=== PATIENT | male | born 1990 | race Caucasian/White ===

== ENCOUNTER → 2022-10-18 13:58 | Outpatient (BNVA) | payer SELFPAY | PROVIDERS: PCP Family Medicine Adult Medicine; Visit Provider Family Medicine Adult Medicine | DX: R53.83 Other fatigue (principal); G47.419 Narcolepsy without cataplexy; F32.A Depression, unspecified; F41.9 Anxiety disorder, unspecified; Z78.9 Other specified health status | CPT/HCPCS: 80053; 82542; 83036; 84443; 85025 ==

== ENCOUNTER 2022-12-14 19:10 | Emergency (ER) | payer OTHER, SELFPAY ==
[2022-12-14 19:21] VITALS: BP 109/78; PULSE 73; RESP 16; TEMP 36.3; O2SAT 100
[2022-12-14] MEDS: meclizine 25 mg tablet 50 MG PO (19:42)
[2022-12-14] MEDS: ondansetron 2 mg/ML SDV 2 mL 4 MG IVP (19:43)
[2022-12-14] MEDS: sodium chloride 0.9% 1,000 ML 999 ML IV (19:45)
[2022-12-14 19:46] LABS: Basophils % 0.2 %; Eosinophils % 0.7 %; Hemoglobin 14.8 g/dL (11.7-16.6); Lymphocytes # 0.9 10^3/uL (0.8-4.8); Lymphocytes % 20.7 %; Mean Corpuscular HGB Conc 32.9 g/dL (30.0-36.0); Mean Corpuscular Hemoglobin 28.4 pg (28.0-34.0); Mean Corpuscular Volume 86.4 fl (80-94); Mean Platelet Volume 8.8 fL (7.4-10.4); Monocytes # 0.3 10^3/uL (0.2-0.9); Monocytes % 6.2 %; Neutrophils # 3.26 10^3/uL (1.8-7.7); Neutrophils % 71.8 %; Nucleated Red Blood Cells % 0 %; Platelet Count 295 10^3/cmm (130-400); Red Blood Count 5.21 10^6/uL (4.1-5.3); Red Cell Distribution Width 13.2 % (12.1-15.1); White Blood Count 4.5 10^3/uL (4.0-10.0)
--- NOTE | 2022-12-14 19:55 | W.ED.GENADLT ---
HPI - General Adult General: Chief complaint: General Medical Stated complaint: lethargic, n/v Time Seen by Provider: 12/14/22 19:25 Source: patient Mode of arrival: ambulatory Limitations: no limitations History of Present Illness: 32-year-old male states that over the last couple days he has had some vertigo he states it is much worse today has had nausea and vomiting states it is much worse with sudden movements states better when he is laying still he states that once he starts walking is able to walk without any difficulty he denies any fever denies any headache. Associated symptoms: Reports nausea and vomiting; Deny chest pain, dyspnea, headache(s) or rash Review of Systems Const: Denies: fever(s), chills, body aches or change in appetite Eyes: Denies: blurry vision or eye discomfort Card: Denies: chest pain Resp: Denies: dyspnea GI: Reports: nausea and vomiting; Denies: abdominal pain or diarrhea : Denies: dysuria Musc: Denies: neck pain or back pain Skin/Breast: Denies: rash Neuro: Reports: vertigo; Denies: headache(s) PFSH ED PFSH: Medical History Adjustment disorder with mixed anxiety and depressed mood Anxiety and depression Fatigue Insomnia Smoker unmotivated to quit Social History Quit status (tobacco): has tried quititng Number of times tried to quit tobacco: 1 Second hand smoke exposure: Yes Alcohol intake: never Substance/Drug Use: never Current occupational status: previously employed Physical Exam Const: COMMON NORMALS: no acute distress, patient oriented x3 and healthy appearing HENMT: COMMON NORMALS: normocephalic and atraumatic HEAD & SCALP: normocephalic and atraumatic Eye: COMMON NORMALS: Equal, round and reactive pupils present and EOMs intact bilaterally PUPIL: Yes Equal, round and reactive pupils present OTHER: nystagmus when looking to the right Neck/C-Spine: COMMON NORMALS: full ROM and supple Chest: COMMONS NORMALS: normal inspection of the chest and normal palpation of entire chest wall Resp: COMMON NORMALS: normal respiratory effort, No retractions, No use of accessory muscles and clear to auscultation bilaterally AUSCULTATION: clear to auscultation bilaterally Cardio: COMMON NORMALS: regular rate, regular rhythm and No murmurs present (Cardio) RATE: regular rate RHYTHM: regular rhythm GI: COMMON NORMALS: Normal to inspection, nondistended, normoactive bowel sounds present, Soft to palpation, non-tender and no masses PALPATION: Yes Soft to palpation Extremity: COMMON NORMALS: normal to inspection and full ROM Neuro: COMMON NORMALS: patient oriented x3, moves all extremities and no focal motor deficits CRANIAL NERVES: Yes CN normal except as noted SPEECH: speech normal GAIT: Yes Normal gait present MOTOR EXAM: 5/5 motor strength present throughout Psych: COMMON NORMALS: mental status grossly normal, Normal thought process present and cooperative THOUGHT PROCESS: Normal thought process present Skin: COMMON NORMALS: no rashes or lesions noted and no wounds GENERAL SKIN EXAM: no rashes or lesions noted Course Vital Signs: Vital signs: Vital Signs Temperature 97.3 F L 12/14/22 19:21 Pulse Rate 64 12/14/22 20:30 Respiratory Rate 16 12/14/22 20:30 Blood Pressure 108/75 12/14/22 20:30 Pulse Oximetry 98 12/14/22 20:30 [facility] - General Adult Medical Decision Making Patient presents here with vertigo is likely peripheral in nature he has no signs of a stroke. He feels improved here after Antivert he is able ambulate the halls without any difficulty blood work here is normal we will prescribe him Antivert along with Valium at home he is to follow-up with PCP and return if worsening. Medical Records I reviewed the patient's medical records. Lab Data I reviewed the patient's lab results. 12/14/22 19:40 12/14/22 19:40 Laboratory Results WBC 4.5 10^3/uL (4.0-10.0) 12/14/22 19:40 RBC 5.21 10^6/uL (4.1-5.3) 12/14/22 19:40 Hgb 14.8 g/dL (11.7-16.6) 12/14/22 19:40 Hct 45.0 % (42.0-52.0) 12/14/22 19:40 MCV 86.4 fl (80-94) 12/14/22 19:40 MCH 28.4 pg (28.0-34.0) 12/14/22 19:40 MCHC 32.9 g/dL (30.0-36.0) 12/14/22 19:40 RDW 13.2 % (12.1-15.1) 12/14/22 19:40 Plt Count 295 10^3/cmm (130-400) 12/14/22 19:40 MPV 8.8 fL (7.4-10.4) 12/14/22 19:40 Neut % (Auto) 71.8 % 12/14/22 19:40 Lymph % (Auto) 20.7 % 12/14/22 19:40 Leake % (Auto) 6.2 % 12/14/22 19:40 Eos % (Auto) 0.7 % 12/14/22 19:40 Baso % (Auto) 0.2 % 12/14/22 19:40 Neut # (Auto) 3.26 10^3/uL (1.8-7.7) 12/14/22 19:40 Lymph # (Auto) 0.9 10^3/uL (0.8-4.8) 12/14/22 19:40 Leake # (Auto) 0.3 10^3/uL (0.2-0.9) 12/14/22 19:40 Eos # (Auto) 0.0 10^3/uL (0.0-0.8) 12/14/22 19:40 Baso # (Auto) 0.0 10^3/uL (0.0-0.1) 12/14/22 19:40 Nucleated RBC % (auto) 0 % 12/14/22 19:40 Nucleated RBCs # 0.0 /100WBC 12/14/22 19:40 Sodium 131 mmol/L (136-145) L 12/14/22 19:40 Potassium 3.9 mmol/L (3.5-5.1) 12/14/22 19:40 Chloride 96 mmol/L (98-107) L 12/14/22 19:40 Carbon Dioxide 27 mmol/L (22-29) 12/14/22 19:40 Anion Gap 11.9 (5-19) 12/14/22 19:40 BUN 11 mg/dL (6-20) 12/14/22 19:40 Creatinine 0.7 mg/dL (0.7-1.2) 12/14/22 19:40 GFR Calculation 129.1 mL/min (90-130) 12/14/22 19:40 Glucose 107 mg/dL (65-115) 12/14/22 19:40 Calculated Osmolality 272 mOsm/kg (285-295) L 12/14/22 19:40 Calcium 9.1 mg/dL (8.5-10.5) 12/14/22 19:40 Total Bilirubin 0.6 mg/dL (0.15-1.2) 12/14/22 19:40 AST 17 U/L (0-40) 12/14/22 19:40 ALT 16 U/L (0-41) 12/14/22 19:40 Alkaline Phosphatase 87 U/L (40-130) 12/14/22 19:40 Total Protein 6.7 g/dL (6.6-8.7) 12/14/22 19:40 Albumin 4.4 g/dL (3.5-5.2) 12/14/22 19:40 Globulin 2.3 g/dL (1.3-4.6) 12/14/22 19:40 Lipase 27 U/L (13-60) 12/14/22 19:40 Discharge Plan Discharge Patient Disposition: Home Clinical Impression: Vertigo Condition: Stable Prescriptions: New meclizine 50 mg tablet 50 mg PO BID PRN (Reason: dizziness) Qty: 20 0RF Valium 5 mg tablet 5 mg PO Q8H PRN (Reason: dizziness) Qty: 10 0RF No Action dextroamphetamine-amphetamine [Adderall] 10 mg tablet 10 mg PO BID 30 Days Qty: 60 0RF Rx Instructions: refill on or after 30 days interval Discharge Orders: Discharge ED (Routine); Ordered 12/14/22 Ordered By: Gregory Valdez Referrals: Walker Vera MD [Primary Care Provider] - 1-3 days Discharge Diet: Advance as tolerated Discharge Activity: Resume usual activity Patient Instructions: Vertigo (ED), Benign Paroxysmal Positional Vertigo (ED) Coding Level of Care Code ED Computerized Table Cutter for Kizzy Godinez
[2022-12-14 20:03] LABS: Alanine Aminotransferase 16 U/L (0-41); Albumin Level 4.4 g/dL (3.5-5.2); Alkaline Phosphatase 87 U/L (40-130); Anion Gap 11.9 (5-19); Aspartate Amino Transferase 17 U/L (0-40); Blood Urea Nitrogen 11 mg/dL (6-20); Calcium 9.1 mg/dL (8.5-10.5); Carbon Dioxide 27 mmol/L (22-29); Chloride 96 mmol/L (98-107); Globulin 2.3 g/dL (1.3-4.6); Glomerular Filtration Rate 129.1 mL/min (90-130); Glucose 107 mg/dL (65-115); Lipase 27 U/L (13-60); Osmolality Calculated 272 mOsm/kg (285-295); Potassium 3.9 mmol/L (3.5-5.1); Sodium 131 mmol/L (136-145); Total Bilirubin 0.6 mg/dL (0.15-1.2); Total Protein 6.7 g/dL (6.6-8.7)
[2022-12-14 20:07] VITALS: BP 110/82; PULSE 70; RESP 16; O2SAT 99
[2022-12-14] MEDS: diazePAM 5 mg Tablet PO (20:22)
[2022-12-14 20:30] VITALS: BP 108/75; PULSE 64; RESP 16; O2SAT 98
[2022-12-20 15:48] LABS: Lyme AB Screen <0.90 index
[2022-12-20 17:30] LABS: E. Chaffeensis AB IGG <1:64; E. Chaffeensis AB IGM <1:20
[2022-12-20 21:15] LABS: RMSF IGG NOT DETECTED; RMSF IGM NOT DETECTED
== END 2022-12-14 21:08 | disposition home or self-care (01) ==
PROVIDERS: Emergency Provider Emergency Medicine; PCP Family Medicine Adult Medicine
DX: R42 Dizziness and giddiness (principal); Z87.891 Personal history of nicotine dependence
CPT/HCPCS: 80053; 83690; 85025; 86618; 86666; 86757; 96361; 96374; 99284; J2405; J7030; J8597

== ENCOUNTER 2023-01-08 09:15 | Outpatient (CLI) | payer OTHER, SELFPAY ==
--- NOTE | 2023-01-08 09:30 | MR_ITS ---
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 TECHNIQUE: Multiplanar imaging performed through the brain with MultiHance 14 ml's IV. No acute infarcts are seen. Victoria-white matter differentiation is well preserved. No susceptibility artifacts or prior lacunar infarcts. Ventricles and extra-axial spaces are normal. Clivus and pituitary gland are normal. Visualized posterior fossa and brainstem are also normal. Postcontrast images are negative for masses or vascular malformations. There is a very minimally bulb ous and prominent appearance of the RIGHT A1/A2 junction near the anterior communicating artery. Bulb ous area measures 2.6 mm. Favor this is probably related to tortuosity but a small aneurysm is not ex cluded. Advanced on the axial imaging. Note additional vascular abnormality is identified. Dural venous sinuses are normal. Paranasal sinuses: Well aerated with no significant disease. Mastoid air cells: Normal. Calvarium and scalp: Normal. MR/MR head wo/w con [id number] IMPRESSION: 1. Normal MRI brain. No masses or prior infarcts or white matter disease. 2. Very minimally bulbous appearance of the RIGHT A1/A2 junction near the ante rior communicating artery, measures 2.6 mm. Favor this is probably tortuosity o f the artery. A small aneurysm is not excluded. Consider follow-up MR angiogram [place].
[2023-01-08] MEDS: gadobenate dimeglumine 20 mL vial IV (10:05)
== END 2023-01-08 09:16 | disposition home or self-care (01) ==
PROVIDERS: PCP Family Medicine Adult Medicine; Visit Provider Psychiatry & Neurology Neurology
DX: G47.411 Narcolepsy with cataplexy (principal); R53.83 Other fatigue
CPT/HCPCS: 70553; A9577

== ENCOUNTER 2023-01-17 14:49 | Outpatient (CLI) | payer OTHER, SELFPAY ==
--- NOTE | 2023-01-17 15:00 | MR_ITS ---
WS: [id number] MRA HEAD TECHNIQUE: Axial 3-D TOF images obtained with axial images and axial, sagittal, and coronal 2-D refor matted images. CLINICAL INFORMATION: R42 - Dizziness and giddiness COMPARISON: MRI January 08, 2023 FINDINGS: Tiny infundibulum at the RIGHT A2 origin as described on the prior MRI. Tiny infundibulum measures 2.8 mm. Dominant distal LEFT vertebral artery. Basilar artery is patent. Normal vascularity to the [place]y bilaterally. Both ICAs are patent at the skull base. Normal vascularity to the [place] and [place] territ ories bilaterally. No evidence of proximal flow limiting stenosis MR/MR angio head wo con [id number] IMPRESSION: 1. Tiny infundibulum at the A2 origin as described on the prior MRI. This can be followed up in one year with CTA or MRA to ensure stability. 2. Otherwise unremarkable intracranial MRA.
== END 2023-01-17 14:50 | disposition home or self-care (01) ==
PROVIDERS: PCP Family Medicine Adult Medicine; Visit Provider Psychiatry & Neurology Neurology
DX: R42 Dizziness and giddiness (principal); G47.411 Narcolepsy with cataplexy; H91.91 Unspecified hearing loss, right ear
CPT/HCPCS: 70544

== ENCOUNTER 2023-03-04 20:00 | Outpatient (CLI) | payer OTHER, SELFPAY | END 2023-03-04 20:01 | disposition home or self-care (01) | LOC: SLEEP 03-05 05:28 | PROVIDERS: PCP Family Medicine Adult Medicine; Visit Provider Psychiatry & Neurology Neurology | DX: G47.30 Sleep apnea, unspecified (principal); R06.83 Snoring; R53.83 Other fatigue | CPT/HCPCS: 95810 ==

== ENCOUNTER → 2024-06-10 08:11 | Outpatient (BNVA) | payer OTHER, SELFPAY | PROVIDERS: PCP Family Medicine Adult Medicine; Visit Provider Emergency Medicine | DX: J02.9 Acute pharyngitis, unspecified (principal) | CPT/HCPCS: 87880 ==